=== PATIENT | female | born 1990 | race African-American/Black ===

== ENCOUNTER 2018-06-10 08:29 | Emergency (ER) | payer OTHER, MEDICAID ==
[~2018-06-10] VITALS: Ht 160 cm; Wt 68.0 kg
[2018-06-10] MEDS ORDERED: KETOROLAC 30MG/ML VIAL IM STA (09:50)
[2018-06-10 11:59] VITALS: BP 130/84
== END 2018-06-10 12:00 | disposition left against medical advice (07) ==
LOC: ER 08:29
DX: S06.9X9A Unspecified intracranial injury with loss of consciousness of unspecified duration, initial encounter (principal); S80.01XA Contusion of right knee, initial encounter; M25.511 Pain in right shoulder; V89.2XXA Person injured in unspecified motor-vehicle accident, traffic, initial encounter; Y93.89 Activity, other specified; Y92.89 Other specified places as the place of occurrence of the external cause; Y99.8 Other external cause status
CPT/HCPCS: 73562; 81025; 96372; 99283; J1885